=== PATIENT | male | born 1985 | race Caucasian/White ===

== ENCOUNTER 2019-09-18 15:40 | Outpatient (CLI) | payer OTHER ==
--- NOTE | 2019-09-18 17:01 | SLEEP CARE CONSULTATION ---
Information from patient questionnaire entered by Tracey Tapia. I have reviewed and concur with the information entered by Tracey Tapia. This document represents the service I personally performed and the decisions made by me, Diane Rios ARNP. History of Present Illness Service Date and Time: 09/18/2019 1540 Reason for Visit: New patient Chief Complaint: reports: Unrefreshed sleep, Snoring, Excessive daytime sleepiness, Observed pauses in breathing, Fatigue, Frequent awakenings at night (aware of tossing/turning or shifting during night). denies: Insomnia Duration of Symptoms: long enough it feels normal Usual bedtime: 2200 Time it takes to fall asleep: 10-30 minutes Snores at night: Yes Observed to quit breathing while asleep: Yes Sleeps alone due to snoring: No Number of times waking at night: unknown Reasons for waking at night: reports: Gasping for air, Bathroom (occasionally), Other ( and noted gasping prior to apnea resolution at times). denies: Choking, Snoring Toss, Turn, or Twitch while sleeping: Yes Recalls having dreams: Yes Usually gets out of bed at: [id number] Feels refreshed in the morning: No Morning headache: Yes (sometimes) Sleepy or fatigued during the day: Yes Ever fallen asleep while driving: No Takes day naps: Yes (sometimes; avoids so he may sleep at normal night time) Dreams during day naps: No Prior sleep studies: No - Parasomnia Symptoms Ever been unable to move upon waking from sleep: No Walks in sleep: Yes Talks in sleep: Yes Ever acted out dreams in sleep: Yes Ever felt weak in the knees when startled or emotional: No Bothered by creepy, crawly, restless sensations in legs: Yes Problems with memory or concentration: Yes (both, hard time concentration; possible ADHD) Subjective Initial [place] Sleepiness Scale score: 8 Past Medical History Past Medical History: reports: Attention deficit, Other (kidney stones). denies: Hypertension (gets comments of elevated blood pressure in doctor's office), Congestive Heart Failure, Diabetes, Stroke, Coronary Heart Disease, Arrythmia, Anemia, Anxiety, Asthma, Depression, Mood disorder, GERD Social History The patient's occupation is active . Patient is / and lives in [place]. Have you smoked in the past 12 months: Yes Cigarettes per day (20/pack): 20 Years of smokin Quit date: 2018 Smoking Pack Years: 10.0 Alcohol use: Yes Alcohol amount and frequency: occasional weekdays, once a month on weekend Caffeine use: Yes Caffeine amount and frequency: big cup of coffee/energy drinks Family History Family history of sleep disordered breathing: Yes Family Hx Sleep Apnea: Father: Snoring Allergies and Home Medications Drug allergies reviewed: Yes (NKDA) Home medication list reviewed: Yes (none currently) Review of Systems Weight gain over past 5 years: 20 Weight loss over past 5 years: 20 Cardiovascular: reports: high blood pressure. denies: palpitations, chest pain, irregular heart rate or pulse, leg or foot swelling, have to sleep sitting up Respiratory: denies: shortness of breath, wheeze, chronic cough Gastrointestinal: denies: heartburn, difficulty swallowing, abdominal pain Urinary: denies: incontinence, frequency, urgency, impotence, other Neurological: reports: headaches (frequent; due to dehydration (drank a lot of soda), now better with H2O; has to have tx for resolution in AM HAs). denies: seizure, head trauma, disorientation, speech dysfunction, gait or balance problems, fainting or unconsciousness Psychiatric: reports: Attention Deficit Hyperactivity. denies: anxiety, depression, mood disorder, claustrophobia Ear/Nose/Throat: reports: nose bleeds (as child, now resolved), wisdom teeth removed. denies: nasal congestion, sinus problems, dry mouth/throat, hoarseness, injury to nose, tonsillectomy Endocrine: denies: thyroid disease, sluggishness, too hot or cold, excessive thirst, increased appetite, increased urination, unexplained weakness Musculoskeletal: denies: joint pain, neck pain, back pain, joint swelling, muscle pain or cramping, mobility problems Immunologic: denies: sneezing, rash, itching, allergies to food or environment Physical Exam Heart Rate: 74 O2 Saturation: 98 Height: 5 ft 10 in Weight: 220 lb Body Mass Index: 31.5 BMI Classification: Obese Neck circumference: 16.75 (inches) Nasal exam: negative: erythema, excoriation, scabs, blood tinged nasal secretions, other HEENT: No craniofacial malformation Nostrils: patent to airflow Turbinates: normal Septum: midline Mouth and throat: normal Soft palate: normal Hard palate: normal Uvula: normal Uvula visualization: 100% Mallampati Class I Tongue: enlarged in size with teeth de jesus on lateral edges Tonsils: 1+ Chin and jaw: normal size and position Neck: normal w/o lymphadenopathy or thyromegaly Heart: regular rate and rhythm Lungs: clear bilaterally Impression and Plan 1. Suspected Obstructive Sleep Apnea-Hypopnea Syndrome, as suggested by a history of loud and irregular snoring, observed cessation of breath while asleep, gasping or choking in sleep, morning headache, frequent awakening during the night, unrefreshed sleep, cognitive impairment, and excessive daytime sleepiness. He has thought in past that these were just normal for him, but recently concerned due to symptoms and referred here by his PCP. He is concerned that he may not be able to sleep for the study and I offered a sleep aid (zolpidem) for the study and he agreed. Obesity is a common predisposing factors for obstructive sleep apnea-hypopnea syndrome. I recommend proceeding to polysomnography to confirm the diagnosis and to assess severity. I informed the patient of what the sleep studies involve and after some discussion, obtained agreement to proceed. The pathophysiology of obstructive sleep apnea-hypopnea syndrome was discussed with the patient and health risks of cardiovascular and cerebrovascular disease if not treated. AASM brochure for obstructive sleep apnea-hypopnea syndrome given and reviewed. Risks of drowsy driving discussed in detail and patient advised to avoid long distance driving and to pick pulling machine tender at the first sign of drowsiness. Patient agreed to plan. * Schedule polysomnography and return in 1-2 weeks after the study to discuss result and initiate therapy. * One tablet 5 mg zolpidem prescribed for night of study. * Avoid long distance driving or driving when feeling sleepy. * Avoid alcohol, sedative and muscle relaxant around bedtime. * Attempt to lose weight. * Review instructions provided by trained office staff on how to prepare for the sleep study. * Return for follow-up after sleep study completed. Visit Type: In Office Time Spent with Patient (minutes): 35 Provider Statement: I spent 100% of the Face to Face Visit with the patient with greater than 50% spent counseling the patient and coordination of care.
== END 2019-09-18 15:41 | disposition home or self-care (01) ==
LOC: SC 15:40
PROVIDERS: ATTEND Nurse Practitioner Family
DX: R06.83 Snoring (principal); R06.81 Apnea, not elsewhere classified; R51 Headache; G47.8 Other sleep disorders; R41.89 Other symptoms and signs involving cognitive functions and awareness; G47.10 Hypersomnia, unspecified; E66.9 Obesity, unspecified; Z68.31 Body mass index [BMI] 31.0-31.9, adult
CPT/HCPCS: 99204; 99212

== ENCOUNTER 2019-10-25 07:50 | Outpatient (CLI) | payer OTHER ==
--- NOTE | 2019-10-25 08:30 | SLEEP CARE CONSULTATION ---
Information from patient questionnaire entered by Tracey Tapia. I have reviewed and concur with the information entered by Tracey Tapia. This document represents the service I personally performed and the decisions made by , Diane Rios ARNP. History of Present Illness Service Date and Time: 10/25/2019 0750 Initial [place] Sleepiness Scale score: 8 Current [place] Sleepiness Scale score: 8 Additional HPI information: QUIQUE DOTY returns for follow up and results of the recently performed polysomnography. Patient was found to have mild central sleep apnea with a larissa oxygen saturation of 89%. A manual titration study was recommended to find adequate pressure as well as weight loss. I explained the pathophysiology behind obstructive sleep apnea. We then spent quite a bit of time discussing different treatment options. For mild obstructive sleep apnea, surgery and oral appliance are alternatives to nasal CPAP therapy but in moderate or severe cases, nasal CPAP is the most effective and reliable treatment. Apnea is worse in supine position, but due to central apnea and elevated non- supine AHI positional management therapy may not be effective. Methods discussed such as positioning with pillows, using a T-shirt with tennis balls in the back, and shown commercial products that have a pillow format on back to prevent supine sleep. I reviewed the impact of weight changes on sleep apnea and strongly recommended losing weight. After some discussion, the patient opted to go with the nasal CPAP therapy. Nasal autoCPAP set at 4-15cm H20 will be ordered with rationale explained. A manual titration study will be ordered if unable to find optimal pressure with office adjustments. I explained how CPAP machine works with sample devices [employer] Dream[employer] and [id number] and what to expect when using the machine. Using CPAP every night in order to get used to it was emphasized. Patient advised to put CPAP mask on before getting into bed so as not to fall asleep without CPAP. To assist acclimation to CPAP use, it could also be used for a short time during day while reading or watching TV. The patient was instructed to call the CPAP supplier to discuss any mechanical problem that may occur. If the mask given is uncomfortable or is difficult to keep on through the night even with adjustment, contact the CPAP supplier as many will replace with another mask style if notified before 30 days. If snoring or perceives is not getting enough air or too much air from the machine, notify this office. AASM patient education PAP tips reviewed and given to patient. Patient counseled not drink alcohol less than 4 hours before bedtime as it can increase snoring and apnea. Patient was cautioned about risks of drowsy driving until sleepiness symptoms resolve. Sleep Study - Results Type of Sleep Study: Polysomnography Year and Where: 2019 [facility] Allergies and Home Medications Drug allergies reviewed: Yes (NKDA) Home medication list reviewed: Yes (no changes) Review of Systems Review of systems same as previous: Yes (no changes) Physical Exam Heart Rate: 69 O2 Saturation: 98 Height: 5 ft 10 in Weight: 221 lb 12.8 oz Body Mass Index: 31.8 BMI Classification: Obese Impression and Plan 1. Central Sleep Apnea-Hypopnea Syndrome, mild, with lowest oxygen saturation of 89%. Obviously this is the cause of the patients symptoms of unrefreshed sleep, and excessive daytime sleepiness. As mentioned above, the patient will be started on nasal autoCPAP therapy with pressure set at 4-15 cmH2O. A manual titration study was recommended but patient is moving to [place] in less than a month and will be unable to complete one before moving. We leonel continue with set up here and he will follow up with a sleep center in [place]. Compliance guidelines also reviewed. A copy of compliance guidelines will be given for reference at check out. Because the apnea is more severe supine, I instructed to avoid sleeping supine using pillow positioning until able to start CPAP use. * Nasal auto CPAP therapy, pressure at 4-15 cm H2O. * Attempt to lose weight. * Avoid alcohol consumption near bedtime. * Avoid supine sleep until using CPAP. * The patient is again cautioned about driving until sleepiness completely resolves. * Return one month after CPAP obtained here or in [place] for follow up. I will assess response to therapy and compliance at that time. Visit Type: In Office Time Spent with Patient (minutes): 20 Provider Statement: I spent 100% of the Face to Face Visit with the patient with greater than 50% spent counseling the patient and coordination of care.
== END 2019-10-25 07:51 | disposition home or self-care (01) ==
LOC: SC 07:50
PROVIDERS: ATTEND Nurse Practitioner Family
DX: G47.31 Primary central sleep apnea (principal); E66.9 Obesity, unspecified; Z68.31 Body mass index [BMI] 31.0-31.9, adult
CPT/HCPCS: 99212; 99213